=== PATIENT | female | born 1955 | race Caucasian/White ===

== ENCOUNTER 2018-11-27 07:11 | Day surgery (SDC) | payer OTHER ==
[~2018-11-27 07:11] MED LIST: ALBU90OI61 INH; AZIT250 PO; Bactrim Ds Tab1 EACH PO; CEPH500 PO; CLOT1TC TOP; CYCL10 PO; HYDACE5 PO; IBUP800 PO; KETO15TC TP; MUPI2TC TOP; Mupirocin22 GM TOP; NAPR500 PO; PENVK250 PO; PENVK500 PO; PRED20 PO
--- NOTE | 2018-11-27 08:22 | NUR ---
Ambulatory in Day Surgery. Patient states colon prep results clear. History, Chart, Medications and Allergies reviewed before start of procedure. Lungs clear T/O to Auscultation. Patient confirms NPO status and agrees with scheduled surgery. Pre-Op teaching done. Pt verbalizes understanding. Patient States Post-Procedure ride home has been arranged. Pt states daughter, Serenity, will be giving her a ride home.
--- NOTE | 2018-11-27 08:57 | NUR ---
11/27/18 0857 Felecia Reese PATIENT DETERMINED TO BE ASA APPROPRIATE FOR MODERATE SEDATION PRIOR TO START OF PROCEDURE BY DR. VARGAS, DUE TO FRANCISCA. History, Chart, Medications and Allergies reviewed before start of procedure. PATIENT CONFIRMS NPO STATUS AND AGREES WITH SCHEDULED PROCEDURE. MONITOR INTACT WITH CONTINUOUS PULSE OXIMETRY AND INTERMITTENT BP. O2 VIA N/C INTACT THROUGHOUT SEDATION/PROCEDURE, 3L NC. 3-LEAD EKG REVIEWED WITH PHYSICIAN PRIOR TO START OF PROCEDURE.
--- NOTE | 2018-11-27 09:55 | NUR ---
Patient up to Ambulate independently. Gait steady. Discharge instructions reviewed with patient. Patient verbalizes understanding. Copy given to patient to take home. Patient States Post-Procedure ride home has been arranged. Discharged via wheelchair to private car for ride home.
== END 2018-11-27 23:09 | disposition home or self-care (01) ==
LOC: ORSCMMR 07:11 → ORD 08:30 → ORSCMMR 08:30
PROVIDERS: Internal Medicine Gastroenterology
PROC: 0DBP8ZX Excision of Rectum, Via Natural or Artificial Opening Endoscopic, Diagnostic (ICD-10-PCS; principal; 2018-11-27 08:30)
PROC: 0DBK8ZX Excision of Ascending Colon, Via Natural or Artificial Opening Endoscopic, Diagnostic (ICD-10-PCS; principal; 2018-11-27 08:30)
PROC: 0DBN8ZX Excision of Sigmoid Colon, Via Natural or Artificial Opening Endoscopic, Diagnostic (ICD-10-PCS; principal; 2018-11-27 08:30)
PROC: 0DBM8ZX Excision of Descending Colon, Via Natural or Artificial Opening Endoscopic, Diagnostic (ICD-10-PCS; principal; 2018-11-27 08:30)
PROC: 0DBH8ZX Excision of Cecum, Via Natural or Artificial Opening Endoscopic, Diagnostic (ICD-10-PCS; principal; 2018-11-27 08:30)
DX: Z12.11 Encounter for screening for malignant neoplasm of colon (principal); K63.5 Polyp of colon; D12.0 Benign neoplasm of cecum; D12.2 Benign neoplasm of ascending colon; D12.4 Benign neoplasm of descending colon; K62.1 Rectal polyp; K63.89 Other specified diseases of intestine; K57.30 Diverticulosis of large intestine without perforation or abscess without bleeding; G47.30 Sleep apnea, unspecified; F17.210 Nicotine dependence, cigarettes, uncomplicated
CPT/HCPCS: 88305; J2250; J3010; J7120

== ENCOUNTER 2019-02-26 07:34 | Day surgery (SDC) | payer OTHER ==
[~2019-02-26] VITALS: Ht 162.6 cm; Wt 82.6 kg
--- NOTE | 2019-02-26 10:25 | NUR ---
Ambulatory in Day Surgery FROM RADIOLOGY Surgical site prepped with 2% Chlorhexidine cloth wipe. History, Chart, Medications and Allergies reviewed before start of procedure.Lungs clear T/O to Auscultation. Patient confirms NPO status and agrees with scheduled surgery. Pre-Op teaching done. Pt verbalizes understanding. Patient reports completing Chlorhexadine shower X2 prior to admission to hospital.
--- NOTE | 2019-02-26 13:13 | NUR ---
INTO STEP VIA LEONELA. PT S/P LEFT BREAST PARTIAL LUMPECTOMY.SPACE IN PLACE TO LEFT BREAST. 4X4 GUAZE AND DRAIN SPONGE IN PLACE-INCISION C/D/I. BREAST BINDER AND ICE IN PLACE. PT REPORTS INCISIONAL PAIN 5/10. DENIES NAUSEA. AMBULATED TO BRP WITHOUT DIFFICULTY. HARRIS INITIATED.
--- NOTE | 2019-02-26 14:18 | NUR ---
Jennie Paws warming gown applied. Discharge instructions reviewed with patient. Patient verbalizes understanding. Copy given to patient to take home. Dressing to procedure site clean, dry, intact with no visible drainage, swelling, erythema or bruising noted.
== END 2019-02-26 14:27 | disposition home or self-care (01) ==
LOC: MOI US 07:34 → ORSCMMR 07:34 → MOI US 08:00 → ORSCMMR 09:54 → NM 10:00 → MOI US 14:27
PROVIDERS: Surgery
PROC: 07B60ZX Excision of Left Axillary Lymphatic, Open Approach, Diagnostic (ICD-10-PCS; principal; 2019-02-26 11:00)
PROC: 0HHU0NZ Insertion of Tissue Expander into Left Breast, Open Approach (ICD-10-PCS; principal; 2019-02-26 11:00)
PROC: 0HBU0ZZ Excision of Left Breast, Open Approach (ICD-10-PCS; principal; 2019-02-26 11:00)
DX: C50.812 Malignant neoplasm of overlapping sites of left female breast (principal); Z17.0 Estrogen receptor positive status [ER+]; D36.0 Benign neoplasm of lymph nodes; G47.33 Obstructive sleep apnea (adult) (pediatric); E03.9 Hypothyroidism, unspecified; F17.210 Nicotine dependence, cigarettes, uncomplicated
CPT/HCPCS: 19285; 38792; 76098; 77065; 87081; 88307; 88342; A9270-GY; A9520; J0690; J1100; J2250; J2405; J2704; J3010; J7120; Q9968

== ENCOUNTER 2019-03-02 05:38 | Day surgery (SDC) | payer OTHER ==
[~2019-03-02] VITALS: Ht 162.6 cm; Wt 86.7 kg
--- NOTE | 2019-03-02 06:41 | NUR ---
History, Chart, Medications and Allergies reviewed before start of procedure. Patient confirms NPO status and agrees with scheduled surgery. Lungs with expiratory wheezes throughout, will notify Dr Colindres prior to surgery. Patient States Post-Procedure ride home has been arranged. Pre-Op teaching done. Pt verbalizes understanding.
--- NOTE | 2019-03-02 07:21 | NUR ---
BE[employer] PUL[employer]EDER REPORT COMPLETED AT BEDSIDE WITH LINDA Bentley RN.
--- NOTE | 2019-03-02 07:38 | NUR ---
03/02/19 0737 Giovanni Jamison NO ANTIBIOTICS ORDERED
--- NOTE | 2019-03-02 08:15 | NUR ---
Discharge instructions reviewed with patient. Patient verbalizes understanding. Copy given to patient to take home. DRG INTACT WITH OINTMENT AROUND SITE AND GAUZE, MORE GAUZE GIVEN PT STATES SHE'S HAD TO CHANGE DRG FOR SOME OOZING, GAVE BACITRACIN THAT WAS OPENED FROM OR. PT VOIDED AND GETTING DRESSED.
--- NOTE | 2019-03-02 08:19 | NUR ---
Discharged via wheelchair to private car for ride home.
== END 2019-03-02 08:20 | disposition home or self-care (01) ==
LOC: ORSCMMR 05:38 → ORD 07:30 → ORSCMMR 08:20
PROVIDERS: Surgery
PROC: 0WH803Z Insertion of Infusion Device into Chest Wall, Open Approach (ICD-10-PCS; principal; 2019-03-02 07:30)
DX: C50.812 Malignant neoplasm of overlapping sites of left female breast (principal); C50.912 Malignant neoplasm of unspecified site of left female breast; G47.33 Obstructive sleep apnea (adult) (pediatric); E03.9 Hypothyroidism, unspecified; F17.210 Nicotine dependence, cigarettes, uncomplicated
CPT/HCPCS: C1728; J2250; J2405; J2704; J7120

== ENCOUNTER → 2020-07-08 | Outpatient (CLI) | payer MEDICARE, OTHER | END | disposition home or self-care (01) | LOC: LAB UCHC 15:43 → LAB SHORT 15:43 | DX: H60.93 Unspecified otitis externa, bilateral (principal) | CPT/HCPCS: 87070; 87077; 87102; 87106; 87147; 87186; 87205 ==

== ENCOUNTER → 2021-02-06 | Outpatient (CLI) | payer MEDICARE, OTHER | END | disposition home or self-care (01) | LOC: LAB SHORT 12:00 → LAB 12:00 → LAB FUT 02-06 17:15 | DX: N39.0 Urinary tract infection, site not specified (principal) | CPT/HCPCS: 87077; 87086; 87186 ==

== ENCOUNTER → 2023-12-05 | Outpatient (CLI) | payer MEDICARE, OTHER ==
[2023-12-09 02:46] LABS: HSV 1 SUBTYPE BY PCR Not Detected; HSV 2 SUBTYPE BY PCR Not Detected; HSV SUBTYPE SOURCE VAGINAL
== END ==
LOC: LAB 17:32 → LAB SHORT 17:32
PROVIDERS: Obstetrics & Gynecology
DX: N89.8 Other specified noninflammatory disorders of vagina (principal); N90.89 Other specified noninflammatory disorders of vulva and perineum
CPT/HCPCS: 87529

== ENCOUNTER 2024-11-26 21:37 | Inpatient (IN) | payer MEDICARE, OTHER ==
[~2024-11-26] VITALS: Ht 162.6 cm; Wt 93.3 kg
[2024-11-26] MEDS ORDERED: Ipratropium/Albuterol SulF 2.5-0.5MG/3 ML Amp INH PRN (21:45)
[2024-11-26 22:03] LABS: BASOPHILS ABSOLUTE AUTO 0.11 K/mm3 (0.00-0.23); BASOPHILS PERCENT AUTO 1 % (0-2); EOSINOPHILS ABSOLUTE AUTO 0.25 K/mm3 (0.00-0.68); EOSINOPHILS PERCENT AUTO 1 % (0-6); Hematocrit 37.6 % (33.0-51.0); Hemoglobin 12.2 g/dL (11.5-16.0); IMMATURE GRAN PERCENT AUTO 1 % (0-1); LYMPHOCYTES ABSOLUTE AUTO 2.85 K/mm3 (0.84-5.20); LYMPHOCYTES PERCENT AUTO 13 % (21-46); MONOCYTES PERCENT AUTO 6 % (4-13); Mean Corpuscular HGB 29.7 pg (26.0-34.0); Mean Corpuscular HGB Conc 32.4 g/dL (31.5-36.5); Mean Corpuscular Volume 92 fL (80-100); Mean Platelet Volume 8.8 fL (9.1-12.4); NEUTROPHILS ABSOLUTE AUTO 16.74 K/mm3 (1.96-9.15); NEUTROPHILS PERCENT AUTO 79 % (41-73); Platelet Count 630 K/mm3 (150-400); RDW Coefficient Variation 12.6 % (11.7-14.2); RDW Standard Deviation 41.8 fL (35.1-46.3); Red Blood Cell Count 4.11 M/mm3 (3.80-5.20); White Blood Cell Count 21.25 K/mm3 (4.00-11.30)
[2024-11-26] MEDS ORDERED: Ketorolac Tromethamine 30mg Vial IV ONE (22:15)
[2024-11-26 22:19] LABS: Albumin/Globulin Ratio 0.7 (0.8-1.8); Bilirubin, Total 0.2 mg/dL (0.1-1.0); Bun/Creatinine Ratio 20.6 (12.0-20.0); Calcium, Blood 8.8 mg/dL (8.5-10.1); Creatinine, Blood 1.02 mg/dL (0.40-1.00); Globulin, Blood 4.3 g/dL (2.2-4.0); Potassium, Blood 4.1 mmol/L (3.5-5.5); Total Protein, Blood 7.3 g/dL (6.4-8.2)
[2024-11-26 22:50] LABS: Influenza A, PCR NEGATIVE (NEGATIVE); Influenza B, PCR NEGATIVE (NEGATIVE); Resp Syncytial Virus, PCR NEGATIVE (NEGATIVE); SARS-Cov-2 (COVID-19) PCR, MMC NEGATIVE (NEGATIVE)
[2024-11-26] MEDS ORDERED: CefTRIAXone Sodium 1,000 MG in NS 50 ML IV ONE (23:05)
[2024-11-26] MEDS ORDERED: FLU VACC TS2024-25(6MOS UP)/PF 45 MCG/0.5 ML SYRINGE IM ONE (23:55)
[2024-11-27] MEDS ORDERED: Azithromycin 500 MG in NS 250 ML IV SCH (00:24)
[2024-11-27] MEDS ORDERED: PredniSONE 20 MG Tab PO SCH (02:00)
[2024-11-27 02:13] LABS: BASOPHILS ABSOLUTE AUTO 0.11 K/mm3 (0.00-0.23); BASOPHILS PERCENT AUTO 1 % (0-2); EOSINOPHILS ABSOLUTE AUTO 0.24 K/mm3 (0.00-0.68); EOSINOPHILS PERCENT AUTO 1 % (0-6); Hematocrit 34.3 % (33.0-51.0); IMMATURE GRAN ABSOLUTE AUTO 0.12 K/mm3 (0.00-0.10); IMMATURE GRAN PERCENT AUTO 1 % (0-1); LYMPHOCYTES PERCENT AUTO 14 % (21-46); MONOCYTES ABSOLUTE AUTO 1.19 K/mm3 (0.16-1.47); MONOCYTES PERCENT AUTO 6 % (4-13); Mean Corpuscular HGB 29.3 pg (26.0-34.0); Mean Corpuscular HGB Conc 32.1 g/dL (31.5-36.5); Mean Corpuscular Volume 92 fL (80-100); Mean Platelet Volume 8.8 fL (9.1-12.4); NEUTROPHILS ABSOLUTE AUTO 15.19 K/mm3 (1.96-9.15); NEUTROPHILS PERCENT AUTO 78 % (41-73); Platelet Count 606 K/mm3 (150-400); RDW Coefficient Variation 12.6 % (11.7-14.2); RDW Standard Deviation 41.9 fL (35.1-46.3); Red Blood Cell Count 3.75 M/mm3 (3.80-5.20); White Blood Cell Count 19.55 K/mm3 (4.00-11.30)
[2024-11-27 02:22] LABS: Albumin, Blood 2.8 g/dL (3.4-5.0); Albumin/Globulin Ratio 0.7 (0.8-1.8); Bilirubin, Total 0.2 mg/dL (0.1-1.0); Bun/Creatinine Ratio 21.2 (12.0-20.0); Calcium, Blood 8.2 mg/dL (8.5-10.1); Creatinine, Blood 0.99 mg/dL (0.40-1.00); Globulin, Blood 3.9 g/dL (2.2-4.0); Total Protein, Blood 6.7 g/dL (6.4-8.2)
[2024-11-27] MEDS ORDERED: TRAM50 PO (04:07)
[2024-11-27] MEDS ORDERED: Lisinopril2.5 MG PO (04:08)
[2024-11-27] MEDS ORDERED: Synthroid200 MCG PO (04:11)
[2024-11-27] MEDS ORDERED: ATOR10 PO (04:11)
[2024-11-27] MEDS ORDERED: ALBU2.5V5 INH (04:12)
[2024-11-27 04:14] VITALS: BP 133/57
[2024-11-27] MEDS ORDERED: OZEMPIC0.25 MG/02 SC (04:15)
[2024-11-27] MEDS ORDERED: Benzonatate 100 MG Cap PO PRN (04:40)
[2024-11-27] MEDS ORDERED: Ketorolac Tromethamine 15mg Vial IV ONE (04:40)
[2024-11-27] MEDS ORDERED: TraMADol HCl 50 MG Tab PO PRN ×2 (04:40→12:25)
[2024-11-27] MEDS ORDERED: Ipratropium/Albuterol SulF 2.5-0.5MG/3 ML Amp INH SCH (04:55)
[2024-11-27] MEDS ORDERED: Albuterol 2.5 MG/3 ML VIAL INH PRN (04:55)
--- NOTE | 2024-11-27 06:52 | NUR ---
NOC SUMMARY- PT ARRIVED TO ROOM IN NO DISTRESS. PT ON 2 LPM NC. PT HAS DEEP HACKING COUGH. SPUTUM SAMPLE SENT. PT C/O RIB PAIN FROM COUGH. PT HOME TRAMADOL ORDERED AND GIVEN. PT REPORTS RELIEF. PT GIVEN ORDERED COUGH MED WITH RELIEF. PT HAS BEEN VOIFDING WELL AND IS AMBULATORY. PT TOLERATING PO. PT REQUESTED TO USE O2 VIA NC INSTEAD OF CPAP. PT CURRENTLY AWAKE IN NO DISTRESS. CALL LIGHT IN REACH.
[2024-11-27] MEDS ORDERED: Insulin Regular 100 UNIT/ML 10ML Vial SC SCH (07:30)
[2024-11-27 07:41] VITALS: BP 136/70
[2024-11-27] MEDS ORDERED: GuaiFENesin 600 MG TabCR PO SCH (09:00)
[2024-11-27] MEDS ORDERED: Lactobacil 2-S.Thermo-Bifido 1 1 Cap PO SCH (09:00)
[2024-11-27] MEDS ORDERED: Enoxaparin 40 MG/0.4 ML SYR SC SCH (09:00)
[2024-11-27 14:37] VITALS: BP 142/63
--- NOTE | 2024-11-27 16:54 | NUR ---
SHIFT SUMMARY THIS RN ASSUMED CARE AT APPROX 0715. PATIENT ALERT AND ORIENTED X4. VSS. TITRATED FROM 2L VIA NC TO ROOM AIR, SATs SUSTAINING >90%. MILD SHORTNESS OF BREATH WITH ACTIVITY. RECEIVING SCHEDULED BREATHING TREATMENTS FROM RT. EXPERIENCING PLUERTIC PAIN DUE W/ EPISODES OF COUGHING - MANAGING PER EMAR WITH REPORTED RELIEF. UP TO RESTROOM WITH SBA. VOIDING. CALL LIGHT IN REACH. REPORT GIVEN TO JASWANT RN TO ASSUME CARE AT THIS TIME.
[2024-11-27 19:20] VITALS: BP 123/64
[2024-11-27] MEDS ORDERED: NS 250 ML IV PRN (19:50)
[2024-11-27] MEDS ORDERED: CefTRIAXone Sodium 1,000 MG in NS 100 ML IV SCH (21:00)
[2024-11-28 04:32] VITALS: BP 154/61
[2024-11-28 04:41] LABS: Hematocrit 37.7 % (33.0-51.0); Hemoglobin 12.3 g/dL (11.5-16.0); Mean Corpuscular HGB 30.1 pg (26.0-34.0); Mean Corpuscular HGB Conc 32.6 g/dL (31.5-36.5); Mean Corpuscular Volume 92 fL (80-100); Mean Platelet Volume 8.7 fL (9.1-12.4); Platelet Count 711 K/mm3 (150-400); RDW Coefficient Variation 12.8 % (11.7-14.2); RDW Standard Deviation 42.8 fL (35.1-46.3); Red Blood Cell Count 4.09 M/mm3 (3.80-5.20); White Blood Cell Count 22.61 K/mm3 (4.00-11.30)
[2024-11-28 05:03] LABS: Albumin/Globulin Ratio 0.8 (0.8-1.8); Bilirubin, Total 0.2 mg/dL (0.1-1.0); Bun/Creatinine Ratio 20.8 (12.0-20.0); Creatinine, Blood 0.87 mg/dL (0.40-1.00); Potassium, Blood 4.5 mmol/L (3.5-5.5)
[2024-11-28 05:10] LABS: BASOPHILS ABSOLUTE MAN 0.22 K/mm3 (0.00-0.23); BASOPHILS PERCENT MAN 1 % (0-2); EOSINOPHILS ABSOLUTE MAN 0.45 K/mm3 (0.00-0.68); EOSINOPHILS PERCENT MAN 2 % (0-6); LYMPHOCYTES ABSOLUTE MAN 4.97 K/mm3 (0.84-5.20); LYMPHOCYTES PERCENT MAN 22 % (21-46); MONOCYTES ABSOLUTE MAN 0.67 K/mm3 (0.16-1.47); MONOCYTES PERCENT MAN 3 % (4-13); NEUTROPHILS ABSOLUTE MAN 16.27 K/mm3 (1.96-9.15); SEG NEUTROPHILS PERCENT MAN 72 % (41-73); TOTAL CELLS COUNTED 100
--- NOTE | 2024-11-28 06:09 | NUR ---
SHIFT SUMMARY PT HAS RESTED MOST OF THE NIGHT. PLEURITIC PAIN MANAGED WITH MEDS PER EMAR. PT HAS WET, HACKING COUGH. MAINTAINING SATS ON RA. IV ANTIBIOTICS PER EMAR. VITALS STABLE. PT HAS BEEN INDEPENDENT IN ROOM. PLAN OF CARE REMAINS UNCHANGED. BED IN LOWEST POSITION, CALL LIGHT WITHIN REACH.
[2024-11-28 07:12] VITALS: BP 137/66
--- NOTE | 2024-11-28 13:15 | NUR ---
SPOUSE'S PHONE NUMBER: [phone]
[2024-11-28 15:25] VITALS: BP 132/65
[2024-11-28 15:49] LABS: Acinetobacter baumannii DNA Not Detected copy/mL (NOT DETECT); Enterobacter cloacae DNA Not Detected copy/mL (NOT DETECT); Escherichia coli DNA Not Detected copy/mL (NOT DETECT)
[2024-11-28 15:50] LABS: Chlamydia pneumonia Not Detected (NOT DETECT); Haemophilus influenzae DNA Detected Bin 10^4 copy/mL (NOT DETECT); Klebsiella aerogenes DNA Not Detected copy/mL (NOT DETECT); Klebsiella oxytoca DNA Not Detected copy/mL (NOT DETECT); Klebsiella pneumoniae DNA Not Detected copy/mL (NOT DETECT); Legionella pneumophila Not Detected (NOT DETECT); Moraxella catarrhalis DNA Detected Bin 10^6 copy/mL (NOT DETECT); Mycoplasma pneumoniae Not Detected (NOT DETECT); Proteus sp DNA Not Detected copy/mL (NOT DETECT); Pseudomonas aeruginosa DNA Not Detected copy/mL (NOT DETECT); Serratia marcescens DNA Not Detected copy/mL (NOT DETECT); Staphylococcus aureus DNA Not Detected copy/mL (NOT DETECT); Streptococcus agalactiae DNA Not Detected copy/mL (NOT DETECT); Streptococcus pneumoniae DNA Not Detected copy/mL (NOT DETECT); Streptococcus pyogenes DNA Not Detected copy/mL (NOT DETECT)
[2024-11-28 15:51] LABS: Adenovirus DNA Not Detected (NOT DETECT); Human Coronavirus RNA Not Detected (NOT DETECT); Human Metapneumovirus RNA Not Detected (NOT DETECT); Influenza virus A RNA Not Detected (NOT DETECT); Influenza virus B RNA Not Detected (NOT DETECT); Parainfluenza virus RNA Not Detected (NOT DETECT); Respiratory syncytial Vir RNA Not Detected (NOT DETECT); Rhinovirus+Enterovirus RNA Not Detected (NOT DETECT)
--- NOTE | 2024-11-28 17:28 | NUR ---
SUMMARY NO ACUTE CHANGES T/O SHIFT. PT WAS SOB EARLIER IN DAY, REC'D BREATHING TX. PROVIDED SPUTUM SAMPLE. SHOWERED. RESTING IN BED AT THIS TIME, STATING FEELS LESS SOB AND SLIGHTLY IMPROVED. 02 SATS LOW TO MID 90S ON 2L NC. INDEPENDENT IN ROOM. CALL LIGHT IN REACH.
[2024-11-28 19:32] VITALS: BP 136/73
[2024-11-29 04:35] VITALS: BP 124/64
[2024-11-29 06:13] LABS: BASOPHILS ABSOLUTE AUTO 0.06 K/mm3 (0.00-0.23); BASOPHILS PERCENT AUTO 0 % (0-2); EOSINOPHILS ABSOLUTE AUTO 0.07 K/mm3 (0.00-0.68); EOSINOPHILS PERCENT AUTO 0 % (0-6); Hematocrit 34.6 % (33.0-51.0); Hemoglobin 11.2 g/dL (11.5-16.0); IMMATURE GRAN ABSOLUTE AUTO 0.12 K/mm3 (0.00-0.10); IMMATURE GRAN PERCENT AUTO 1 % (0-1); LYMPHOCYTES PERCENT AUTO 17 % (21-46); MONOCYTES ABSOLUTE AUTO 0.96 K/mm3 (0.16-1.47); MONOCYTES PERCENT AUTO 5 % (4-13); Mean Corpuscular HGB 29.4 pg (26.0-34.0); Mean Corpuscular HGB Conc 32.4 g/dL (31.5-36.5); Mean Corpuscular Volume 91 fL (80-100); Mean Platelet Volume 8.8 fL (9.1-12.4); NEUTROPHILS ABSOLUTE AUTO 13.87 K/mm3 (1.96-9.15); NEUTROPHILS PERCENT AUTO 77 % (41-73); Platelet Count 661 K/mm3 (150-400); RDW Coefficient Variation 12.7 % (11.7-14.2); RDW Standard Deviation 42.3 fL (35.1-46.3); Red Blood Cell Count 3.81 M/mm3 (3.80-5.20); White Blood Cell Count 18.08 K/mm3 (4.00-11.30)
--- NOTE | 2024-11-29 06:32 | NUR ---
SHIFT SUMMARY NOC. PT A/O X4 AND INDEPENDENT IN ROOM. PT ADMIT FOR RESP FAILURE. CONT BIOX IN PLACE, NO DESAT EVENTS, PT ON 2L VIA N/C. PT REPORTS COUGH AND RIGHT SIDE PAIN THAT WORSENS WITH COUGHING. PT MEDICATED WITH TRAMADOL AND TESSALON WITH REPORTED RELIEF OF SX. PT VOIDING URINE AND TOLERATING DIET. PT MAKES NEEDS KNOWN, CALL LIGHT IN REACH.
[2024-11-29 06:39] LABS: Bun/Creatinine Ratio 21.2 (12.0-20.0); Calcium, Blood 9.1 mg/dL (8.5-10.1); Creatinine, Blood 0.8 mg/dL (0.40-1.00)
[2024-11-29 07:31] VITALS: BP 140/67
--- NOTE | 2024-11-29 10:17 | NUR ---
Pt. is awake in bed when she welcomes my visit. pt. is unsettled about her nagging diagnosis, and is awaiting a visit from the hospitalist. Facilitated a life review. Listen with empathy and interest. Consider matters of chino and belief. Pt. displayed evidence of being encouraged. Prayed with the Pt. Pt. verbalized gratitude for the spiritual care visit and welcomed this tube coater to return.
[2024-11-29] MEDS ORDERED: Chlorpheniramine/Hydroc Polistir 5 ML UDC PO SCH (10:45)
[2024-11-29 15:58] VITALS: BP 127/71
--- NOTE | 2024-11-29 17:03 | NUR ---
SUMMARY NO ACUTE CHANGES T/O SHIFT. PT 02 SATS DROPPED TO 87% ON RA WHILE SITTIN GUP IN BED, READING. PLACED PT ON 1L 02, SATS INCREASED TO 90%. DR ROSE ORDERED TUSSIONEX AND PT REC'D FIRST DOSE THIS AM PER ORDERS. PT REPORTS HELPED IMPROVE COUGH. PT INDEPENDENT IN ROOM. CALL LIGHT IN REACH.
[2024-11-29] MEDS ORDERED: Mometasone/Formoterol MDI 200/5 mcg 13 GM INH SCH (18:00)
[2024-11-29 19:03] VITALS: BP 126/60
[2024-11-29] MEDS ORDERED: Doxycycline Hyclate 100 MG TAB PO SCH (21:00)
[2024-11-30 02:29] VITALS: BP 150/74
--- NOTE | 2024-11-30 04:21 | NUR ---
SHIFT SUMMARY NOC. PT ADMIT FOR ACUTE RESPIRATORY FAILURE c HYPOXIA SECONDARY TO BRONCHITIS AND COPD EXACERBATION. PT A/O X4 AND INDEPENDENT IN ROOM, STEADY ON FEET. CONT BIOX IN PLACE, PT ON 1L VIA N/C WITH NO DESAT EVENTS. PT C/O CONTINUING COUGH, MEDICATED WITH TESSALON AND TRAMADOL FOR BREAKTHROUGH PAIN AND COUGHING. PT REPORTS GOOD RELIEF OF SX WITH TUSSIONEX. PT VOIDING URINE AND TOLERATING PO. MAKES NEEDS KNOWN, CALL LIGHT IN REACH.
[2024-11-30 05:30] LABS: BASOPHILS ABSOLUTE AUTO 0.08 K/mm3 (0.00-0.23); BASOPHILS PERCENT AUTO 0 % (0-2); EOSINOPHILS ABSOLUTE AUTO 0.11 K/mm3 (0.00-0.68); EOSINOPHILS PERCENT AUTO 1 % (0-6); Hematocrit 35.3 % (33.0-51.0); Hemoglobin 11.3 g/dL (11.5-16.0); IMMATURE GRAN ABSOLUTE AUTO 0.16 K/mm3 (0.00-0.10); IMMATURE GRAN PERCENT AUTO 1 % (0-1); LYMPHOCYTES PERCENT AUTO 18 % (21-46); MONOCYTES ABSOLUTE AUTO 1.04 K/mm3 (0.16-1.47); MONOCYTES PERCENT AUTO 6 % (4-13); Mean Corpuscular HGB 29.3 pg (26.0-34.0); Mean Corpuscular Volume 92 fL (80-100); Mean Platelet Volume 8.7 fL (9.1-12.4); NEUTROPHILS ABSOLUTE AUTO 13.56 K/mm3 (1.96-9.15); NEUTROPHILS PERCENT AUTO 74 % (41-73); Platelet Count 687 K/mm3 (150-400); RDW Coefficient Variation 12.8 % (11.7-14.2); RDW Standard Deviation 42.4 fL (35.1-46.3); Red Blood Cell Count 3.86 M/mm3 (3.80-5.20); White Blood Cell Count 18.25 K/mm3 (4.00-11.30)
[2024-11-30 05:47] LABS: Bun/Creatinine Ratio 28.7 (12.0-20.0); Calcium, Blood 9.2 mg/dL (8.5-10.1); Creatinine, Blood 0.98 mg/dL (0.40-1.00); Potassium, Blood 4.4 mmol/L (3.5-5.5)
[2024-11-30 07:08] VITALS: BP 136/70
[2024-11-30 14:18] VITALS: BP 127/79
--- NOTE | 2024-11-30 17:56 | NUR ---
SHIFT SUMMARY PT ADMITTED FOR ACUTE RESPIRATORY FAILURE C HYPOXIA SECONDARY TO BRONCHITIS AND COPD EXCACERBATION. PT A&O X4. INDEPENDENT IN ROOM. CONTINUOUS BIOX IN PLACE. PT ON ROOM AIR MAINTAINING O2 SATURATION OF 92% WITH NO DESAT EVENTS. PT C/O COUGH WITH GOOD RELIEF OF SYMPTOMS WITH TUSSIONEX. PT REPORTS IMPROVEMENT OF SOB WITH EXERCTION. DR. ROSE DC'D ROCEPHIN AND PRESCRIBED AUGMENTIN 875MG PO BID. LEFT AC IV DC'D. PT VOIDING URINE AND TOLERATING DIET. MAKES NEEDS KNOWN. CALL LIGHT IN REACH.
[2024-11-30 19:30] VITALS: BP 140/69
[2024-11-30] MEDS ORDERED: Amoxicillin/Clavulanate K 875 MG Tab PO SCH (21:00)
--- NOTE | 2024-12-01 04:45 | NUR ---
SHIFT SUMMARY; PATIENT SLEPT IN LONG INTERVALS, DID REQUIRE UDN BY RT ONCE OR TWICE.
[2024-12-01 04:48] VITALS: BP 128/63
[2024-12-01 07:41] VITALS: BP 136/74
[2024-12-01] MEDS ORDERED: AMOCLA875 PO (11:01)
[2024-12-01] MEDS ORDERED: DOXY100 PO (11:02)
[2024-12-01] MEDS ORDERED: Tessalon200 MG PO (11:02)
[2024-12-01] MEDS ORDERED: GUAI600T33 PO (11:03)
[2024-12-01] MEDS ORDERED: IPRAT-ALBUT 0.5-3 ML INH (11:05)
[2024-12-01] MEDS ORDERED: DULERA 100 MCG/13 GM INH (11:06)
[2024-12-01] MEDS ORDERED: [UNRECOGNIZED DRUG - OTHER] PO (11:11)
[2024-12-01] MEDS ORDERED: LACT PO (11:17)
--- NOTE | 2024-12-01 15:53 | NUR ---
DISCHARGE PT BREATHING IMPROVED DURING SHIFT, CONTINUED TO AMBULATE INDEPENDENTLY IN ROOM AND HALLS. REMAINED ON ROOM AIR DURING SHIFT. HOME 02 EVAL DONE AND OXYGEN DELIVERED PRIOR TO DISCHARGE. DTR PICKED UP PRESCRIPTIONS. ALL DISCHARGE INSTRUCTIONS GONE OVER WITH PATIENT, NO FURTHER QUESTIONS. ESCORTED OUT VIA WHEELCHAIR. ALL BELONGINGS WITH PATIENT.
== END 2024-12-01 15:05 | disposition home or self-care (01) | DRG 871 ==
LOC: ER 21:37 → SURS 21:38 → ERHOLD 21:38 → SURS 11-27 03:53
PROVIDERS: Emergency Medicine; Family Medicine; Internal Medicine; Student in an Organized Health Care Education/Training Program; ADMIT Student in an Organized Health Care Education/Training Program
PROC: 3E03329 Introduction of Other Anti-infective into Peripheral Vein, Percutaneous Approach (ICD-10-PCS; principal; 2024-11-27)
PROC: 5A09357 Assistance with Respiratory Ventilation, Less than 24 Consecutive Hours, Continuous Positive Airway Pressure (ICD-10-PCS; 2024-11-27)
DX: A41.3 Sepsis due to Hemophilus influenzae (principal); J96.01 Acute respiratory failure with hypoxia; J44.1 Chronic obstructive pulmonary disease with (acute) exacerbation; J44.0 Chronic obstructive pulmonary disease with (acute) lower respiratory infection; A41.89 Other specified sepsis; J20.9 Acute bronchitis, unspecified; G47.33 Obstructive sleep apnea (adult) (pediatric); R74.01 Elevation of levels of liver transaminase levels; E78.5 Hyperlipidemia, unspecified; E03.9 Hypothyroidism, unspecified; K21.9 Gastro-esophageal reflux disease without esophagitis; M41.9 Scoliosis, unspecified; E11.9 Type 2 diabetes mellitus without complications; F17.210 Nicotine dependence, cigarettes, uncomplicated; Z85.3 Personal history of malignant neoplasm of breast; Z90.12 Acquired absence of left breast and nipple; Z98.890 Other specified postprocedural states; Z90.710 Acquired absence of both cervix and uterus; Z90.722 Acquired absence of ovaries, bilateral; Z90.79 Acquired absence of other genital organ(s); Z90.49 Acquired absence of other specified parts of digestive tract; Z88.6 Allergy status to analgesic agent
CPT/HCPCS: 0241U; 0528U; 36415; 71046; 80048; 80053; 82947; 83036; 83735; 84145; 84484; 85025; 87040; 87070; 87205; 93005; 93010; 94640; 94664; 94761; 94762; 96365; 96367; 96372; 96375; 96376; 99285-25; A9270; G0378; J0456; J0696; J1650; J1815; J1885; J7050; J7512

== ENCOUNTER → 2025-03-28 | Outpatient (CLI) | payer MEDICARE, OTHER ==
[~2025-03-28] MED LIST changes: +ALBU2.5V5 INH; +AMOCLA875 PO; +ATOR10 PO; +DOXY100 PO; +DULERA 100 MCG/13 GM INH; +GUAI600T33 PO; +IPRAT-ALBUT 0.5-3 ML INH; +LACT PO; +Lisinopril2.5 MG PO; +OZEMPIC0.25 MG/02 SC; +Synthroid200 MCG PO; +TRAM50 PO; +Tessalon200 MG PO; +[UNRECOGNIZED DRUG - OTHER] PO
[2025-03-28 10:45] LABS: BASOPHILS ABSOLUTE AUTO 0.11 K/mm3 (0.00-0.23); BASOPHILS PERCENT AUTO 1 % (0-2); EOSINOPHILS ABSOLUTE AUTO 0.43 K/mm3 (0.00-0.68); EOSINOPHILS PERCENT AUTO 4 % (0-6); Hematocrit 42.6 % (33.0-51.0); Hemoglobin 13.6 g/dL (11.5-16.0); IMMATURE GRAN ABSOLUTE AUTO 0.02 K/mm3 (0.00-0.10); IMMATURE GRAN PERCENT AUTO 0 % (0-1); LYMPHOCYTES ABSOLUTE AUTO 2.92 K/mm3 (0.84-5.20); LYMPHOCYTES PERCENT AUTO 30 % (21-46); MONOCYTES ABSOLUTE AUTO 0.63 K/mm3 (0.16-1.47); MONOCYTES PERCENT AUTO 6 % (4-13); Mean Corpuscular HGB Conc 31.9 g/dL (31.5-36.5); Mean Corpuscular Volume 96 fL (80-100); NEUTROPHILS ABSOLUTE AUTO 5.75 K/mm3 (1.96-9.15); NEUTROPHILS PERCENT AUTO 58 % (41-73); NRBC ABSOLUTE 0.00 K/mm3 (0.00-0.02); NRBC Auto 0.0 /100 WBC (0.0-0.2); Platelet Count 492 K/mm3 (150-400); RDW Coefficient Variation 13.1 % (11.7-14.2); RDW Standard Deviation 46.3 fL (35.1-46.3)
== END | disposition home or self-care (01) ==
LOC: LAB 09:21 → LAB SHORT 09:21
PROVIDERS: Student in an Organized Health Care Education/Training Program
DX: E11.9 Type 2 diabetes mellitus without complications (principal); I10 Essential (primary) hypertension; H92.03 Otalgia, bilateral; D75.838 Other thrombocytosis; R94.5 Abnormal results of liver function studies
CPT/HCPCS: 85025; 85060